=== PATIENT | male | born 1950 | race Caucasian/White ===

== ENCOUNTER 2021-10-25 11:25 | Inpatient (IN) | payer MEDICARE, BC ==
[2021-10-25] VITALS (26 sets, daily range): BP systolic 92–135; BP diastolic 53–96
[~2021-10-25] VITALS: Ht 180.3 cm; Wt 85.7 kg
[~2021-10-25 11:25] MED LIST: ASPIRIN81 MG PO; GABAPENTIN300 MG PO; PRAVASTATIN SOD40 MG PO; RANEXA500 MG PO; [UNRECOGNIZED DRUG - OTHER]; lisinopril/HCTZ PO
[2021-10-25] MEDS ORDERED: CITALOPRAM HBR20 MG PO (12:02)
[2021-10-25] MEDS ORDERED: NEXIUM40 MG PO (12:02)
[2021-10-25] MEDS ORDERED: METOPROLOL SUCC25 MG PO (12:02)
[2021-10-25] MEDS ORDERED: ATORVASTATIN CA20 MG PO (12:02)
[2021-10-25] MEDS ORDERED: ALPHA LIPOIC ACID (12:02)
[2021-10-25] MEDS ORDERED: CLOPIDOGREL75 MG PO (12:02)
[2021-10-25] MEDS ORDERED: ACYCLOVIR800 MG PO (12:02)
[2021-10-25] MEDS ORDERED: COQ1050 MG PO (12:02)
[2021-10-25] MEDS ORDERED: MIDAZOLAM HCL 2 MG/2 ML VIAL ONE (12:23)
[2021-10-25] MEDS ORDERED: IOPAMIDOL 370 MG/ML 200 ML INFUS..BTL INJ ONE (12:24)
[2021-10-25] MEDS ORDERED: HEPARIN SOD/SOD CHLORIDE 2,000 ML ONE (12:24)
[2021-10-25] MEDS ORDERED: SODIUM CHLORIDE 0.9% 1000ML 1,000 ML ONE ×2 (12:24→19:09)
[2021-10-25] MEDS ORDERED: LIDOCAINE HCL 2% LOCAL 20 ML VIAL ONE (12:24)
[2021-10-25] MEDS ORDERED: FENTANYL CITRATE/PF 100MCG/2 ML INJ ONE (12:24)
[2021-10-25] MEDS ORDERED: ALPRAZOLAM 0.5 MG TAB ONE (12:28)
[2021-10-25] MEDS ORDERED: DIPHENHYDRAMINE HCL 25 MG CAP ONE (12:29)
[2021-10-25] MEDS ORDERED: BIVALRIUDIN 250 MG/VIAL VIAL IV ONE (14:04)
[2021-10-25] MEDS ORDERED: SODIUM CHLORIDE 0.9% 50ML 50 ML ONE (14:04)
[2021-10-25] MEDS ORDERED: PRASUGREL 10 MG TAB ONE (14:09)
[2021-10-25] MEDS ORDERED: ASPIRIN 325 MG TAB ONE (14:09)
[2021-10-26] VITALS (14 sets, daily range): BP systolic 93–137; BP diastolic 52–105
== END 2021-10-26 13:03 | disposition home or self-care (01) | DRG 247 ==
LOC: CATH LAB 11:25 → ICU 19:56
PROVIDERS: ADMIT Internal Medicine Interventional Cardiology; ATTEND Internal Medicine Interventional Cardiology
PROC: 027034Z Dilation of Coronary Artery, One Artery with Drug-eluting Intraluminal Device, Percutaneous Approach (ICD-10-PCS; principal; 2021-10-25)
PROC: 4A023N7 Measurement of Cardiac Sampling and Pressure, Left Heart, Percutaneous Approach (ICD-10-PCS; 2021-10-25)
PROC: B2111ZZ Fluoroscopy of Multiple Coronary Arteries using Low Osmolar Contrast (ICD-10-PCS; 2021-10-25)
DX: I25.110 Atherosclerotic heart disease of native coronary artery with unstable angina pectoris (principal); I73.9 Peripheral vascular disease, unspecified; N52.9 Male erectile dysfunction, unspecified; I71.4 Abdominal aortic aneurysm, without rupture; Z86.718 Personal history of other venous thrombosis and embolism; Z79.01 Long term (current) use of anticoagulants; Z20.822 Contact with and (suspected) exposure to COVID-19
CPT/HCPCS: 36415; 82948; 92928; 93454; 99152; 99153; C1874; C1887; C1894; J0583; J2001; J2250; J3010; J7030; Q9967; U0002

== ENCOUNTER → 2022-11-07 | Day surgery (SDC) | payer MEDICARE, BC ==
[~2022-11-07] MED LIST changes: +ACYCLOVIR800 MG PO; +ALPHA LIPOIC ACID; +ATORVASTATIN CA20 MG PO; +CITALOPRAM HBR20 MG PO; +CLOPIDOGREL75 MG PO; +COQ1050 MG PO; +FENTANYL CITRATE/PF 100MCG/2 ML INJ ONE; +GLYCOPYRROLATE INJ 0.2 MG/ML VIAL ONE; +METOPROLOL SUCC25 MG PO; +MIDAZOLAM HCL 2 MG/2 ML VIAL ONE; +NEOSTIGMINE 1 MG/ML 10ML VIAL ONE; +NEXIUM40 MG PO; +OR PHACO EYE KIT ONE; +POVIDONE IODINE 0.05% 0.05 % ML PO ONE; +PREOP PHACO EYE KIT ONE
[2022-11-07 08:35] VITALS: BP 110/60
== END | disposition home or self-care (01) ==
LOC: OR 06:19
PROVIDERS: ATTEND Ophthalmology
DX: H25.11 Age-related nuclear cataract, right eye (principal); I25.10 Atherosclerotic heart disease of native coronary artery without angina pectoris; I10 Essential (primary) hypertension; F41.9 Anxiety disorder, unspecified; F32.A Depression, unspecified; Z79.02 Long term (current) use of antithrombotics/antiplatelets; Z79.899 Other long term (current) drug therapy
CPT/HCPCS: 66984; J2250; J2710; J3010; V2632